=== PATIENT | female | born 1965 | race Hispanic/Latino ===

== ENCOUNTER 2017-02-14 12:46 | Emergency (ER) | payer OTHER, MEDICARE ==
[~2017-02-14] VITALS: Ht 171.4 cm; Wt 117.9 kg
[~2017-02-14 12:46] MED LIST: ALPRAZOLAM1 M2 PO; BAYER CHEWABLE81 MG PO; BREO ELLIPTA 11 EACH PO; FUROSEMIDE40 M1 PO; MECLIZINE HCL25 MG PO; NAPROXEN500 M2 PO; NEXIUM40 M1 PO; ORPHENADRINE C100 MG PO; OXYCODONE HCL30 M1 PO; POTASSIUM CHLO20 ME2 PO; VALIUM2 M1 PO; VENTOLIN HFA18 GM INH
--- NOTE | 2017-02-14 13:54 | ED GENERAL ADULT ---
See Addendum History of Present Illness General Chief Complaint: General Adult Stated Complaint: BLOODY STOOL Source: patient Exam Limitations: no limitations Vital Signs & Intake/Output Vital Signs & Intake/Output Vital Signs Date Time Temp Pulse Resp B/P B/P Pulse O2 O2 Flow FiO2 Mean Ox Delivery Rate 02/14 1251 96.9 84 20 126/89 97 Room Air Room Air Allergies Coded Allergies: Iodinated Contrast- Oral and IV Dye (IODINATED CONTRAST MEDIA - IV DYE) (UNKNOWN 01/16/16) codeine (UNKNOWN 01/16/16) iodine (UNKNOWN 01/16/16) shellfish derived (UNKNOWN 01/16/16) Reconcile Medications Albuterol Sulfate (Ventolin Hfa) 18 GM HFA.AER.AD 2 PUF INH Q4-6 PRN PRN BREATHING PROBLEMS (Reported) Alprazolam 1 MG TABLET 1 TAB PO BIDP PRN ANXIETY (Reported) Aspirin (Teodora Chewable Aspirin) 81 MG TAB.CHEW 1 TAB PO DAILY HEART HEALTH ( Reported) Esomeprazole (Nexium) 40 MG CAPSULE.DR 1 CAP PO DAILY GI (Reported) Fluticasone/Vilanterol (Breo Ellipta 100-25 Mcg INH) 1 EACH BLST.W.DEV BREATHING PROBLEMS (Reported) Furosemide 40 MG TABLET 1 TAB PO DAILY WATER PILL (Reported) Hydrocortisone (Anusol-Hc) 2.5 % CREAM..G. 1 JONO TOP BID PRN HEMORRHOID apply to affected area(s) Meclizine HCl 25 MG TABLET 1 TAB PO TIDPRN PRN DIZZINESS (Reported) Naproxen 500 MG TABLET 1 TAB PO BID PRN left leg pain Orphenadrine Citrate 100 MG TABLET.ER 1 TAB PO BIDP PRN Left leg pain Oxycodone HCl 30 MG TABLET 1 TAB PO Q4 HRS NEEDED PRN PAIN (Reported) Potassium Chloride 20 MEQ TAB.ER.PRT 1 TAB PO DAILY SUPPLEMENT (Reported) Triage Note: PT TO ED WITH C/O "I TAKE PROBIOTICS FOR YEARS AND I RAN OUT, NOW CONSTIPATED, HAD BM THIS MORNING AND FELT LIKE SOMETHING RIPPED IN THERE AND THERE WAS SOME BLOOD, I JUST WANT TO GET CHECKED OUT". Triage Nurses Notes Reviewed? yes Onset: Gradual Duration: 2 WEEKS Timing: recent history Injury Environment: home Severity: moderate Severity Numbers: 5 Modifying Factors: Worsens With: other (WITH BM). HPI: Patient is a 51-year-old female with history of hemorrhoids remotely presenting to the emergency department with chief complaint of increased constipation, hard stool and blood with wiping that started this morning. Patient reports that she ran out of her stool softener and her probiotic 2 weeks ago. She's been taking it daily for the past 3-4 years. She does report that when she is trying to move her bowel she had some abdominal discomfort this morning but no current abdominal pain. 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 Still taking her other prescription medications. Denies any nausea or vomiting fevers or chills chest pain or shortness of breath. Has not been taking anything else to help with symptoms. (STARLA HURST) Past History Travel History Traveled to [place] past 21 day No Medical History Any Pertinent Medical History? 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 No (STARLA HURST) Review of Systems Review of Systems Constitutional: Reports: no symptoms. Comments Review of systems: See HPI, All other systems negative. Constitutional, no chills fever or weight loss HEENT: No visual changes no sore throat no congestion Cardiovascular: No chest pain ,palpitation , orthopnea or ankle swelling Skin, no jaundice no rashes Respiratory: No dyspnea cough sputum or hemoptysis GI: No nausea no vomiting : No dysuria No hematuria Muscle skeletal: no back pain, no neck pain, Neurologic: No numbness no confusion NO CARMEN Psych: No stress anxiety or depression,. Heme/endocrine: No bruising no bleeding no polyuria or polydipsia Immunology: No splenectomy or history of AIDS (STARLA HURST) Physical Exam Physical Exam General Appearance: well developed/nourished, no apparent distress, alert, awake , comfortable Comments: Well-developed well-nourished person in no acute distress HEENT: . Pupils equally round and reactive to light and accommodation. Nose is atraumatic. Neck: NORMAL INSPECTION Back: Nontender, no CVA tenderness. Cardiovascular: Regular rate and rhythms no murmurs rubs or gallops, normal JVP Respiratory: Chest nontender. No respiratory distress.breath sounds clear to auscultation bilaterally Abdomen: Soft, nontender nondistended, no appreciable organomegaly. Normal bowel sounds. No ascites, NO REBOURD OR GAURDING. RECTAL: No external hemorrhoids appreciated on visualization, nontender, palpable internal hemorrhoid at the 7 o'clock position, approximately 5 mm in size. Guaiac was positive. No other palpable lesions on her rectal exam. Small irritation/ABRASION noted on the external aspect of the anus. Extremity: No edema Neuro: Alert oriented x3 Skin: No appreciable rash on exposed skin, skin is warm and dry. Psych: Mood and affect is normal, memory and judgment is normal. Core Measures ACS in differential dx? No CVA/TIA Diagnosis: No Severe Sepsis Present: No Septic Shock Present: No (STARLA HURST) Progress Differential Diagnoses I considered the following diagnoses in my evaluation of the patient: Hemorrhoid, internal hemorrhoid, lower GI bleed, diverticulitis, diverticulosis, ischemic bowel, dehydration Plan of Care: Patient is well-appearing, afebrile, no abdominal pain on exam. Patient likely having worsening constipation secondary to not taking daily medications. She is instructed to go poultry picker her [id number] medications to take daily to help with her bowels. Patient will also be started on Anusol to help with hemorrhoid. She'll follow up with PCP. Also educated on increasing fluid intake. Initial ED EKG: none (STARLA HURST) Departure Departure Time of Disposition: 1411 Disposition: HOME OR SELF CARE Condition: Stable Clinical Impression Primary Impression: Hemorrhoids Qualifiers: Hemorrhoid type: unspecified Qualified Code: K64.9 - Unspecified hemorrhoids Referrals: ANGELA LANDRUM,MADDI Sena (PCP/Family) Additional Instructions: Follow-up with your primary care physician call to make an appointment. Resume taking her [id number] stool softener as well as her probiotics. Use Anusol cream to help with symptoms. Avoid straining. Increase fluid intake. Departure Forms: Customer Survey General Discharge Information Prescriptions: Current Visit Scripts Hydrocortisone (Anusol-Hc) 1 JONO TOP BID PRN HEMORRHOID #30 GM apply to affected area(s) (STARLA HURST) PA/DIGITAL PRINT OPERATOR Co-Sign Statement Statement: ED Attending supervision documentation- I saw and evaluated the patient. I have also reviewed all the pertinent lab results and diagnostic results. I agree with the findings and the plan of care as documented in the PA's/DIGITAL PRINT OPERATOR's documentation. x I have reviewed the ED Record and agree with the PA's/DIGITAL PRINT OPERATOR's documentation. [] Additions or exceptions (if any) to the PAs/DIGITAL PRINT OPERATOR's note and plan are summarized below: [] (JORGE LANDRUM,KATI) Critical Care Note Critical Care Note Critical Care Time: non-applicable (STARLA HURST)
[2017-02-14] MEDS ORDERED: ANUSOL-HC30 GM TOP (14:14)
[2017-02-14] MEDS ORDERED: BACTROBAN15 GM TOP (14:27)
[2017-02-14 14:34] VITALS: BP 124/82
== END 2017-02-14 14:35 ==
LOC: ERH 12:46
DX: K64.9 Unspecified hemorrhoids (principal)